=== PATIENT | male | born 1970 | race Caucasian/White ===

== ENCOUNTER 2023-01-27 07:54 | Emergency (ER) | payer MEDICARE, OTHER ==
[~2023-01-27] VITALS: Ht 172.7 cm; Wt 88.0 kg
[2023-01-27] MEDS ORDERED: LISI20TA24 PO (08:38)
[2023-01-27] MEDS ORDERED: [UNRECOGNIZED DRUG - REMARK] MISC (08:38)
[2023-01-27] MEDS ORDERED: NIFE-79 PO (08:38)
[2023-01-27] MEDS ORDERED: SEVE800T17 PO (08:38)
[2023-01-27] MEDS ORDERED: BUME1TAB6 PO (08:38)
[2023-01-27] MEDS ORDERED: ASPI-1444 PO (08:38)
[2023-01-27] MEDS ORDERED: LORazepam 1 MG TABLET PO ONE (09:15)
[2023-01-27 09:55] VITALS: BP 141/73; PULSE 98; RESP 18; TEMP 97.4
== END 2023-01-27 10:21 | disposition home or self-care (01) ==
LOC: EMS 07:55
DX: F41.9 Anxiety disorder, unspecified (principal); Z98.890 Other specified postprocedural states
CPT/HCPCS: 82962; 99283

== ENCOUNTER 2023-01-30 20:23 | Inpatient (IN) | payer MEDICARE, OTHER ==
[~2023-01-30] VITALS: Ht 172.7 cm; Wt 91.7 kg
[~2023-01-30 20:23] MED LIST: ASPI-1444 PO; BUME1TAB6 PO; LISI20TA24 PO; NIFE-79 PO; SEVE800T17 PO; [UNRECOGNIZED DRUG - REMARK] MISC
[2023-01-30] MEDS ORDERED: LORazepam 2 MG/ML VIAL IVP ONE (20:45)
[2023-01-30] MEDS ORDERED: NITROGLYCERIN 0.4 MG SUBLINGUAL TABLET #25 SL ONE (21:00)
[2023-01-30] MEDS ORDERED: MORPHINE SULFATE 4 MG/ML SYRINGE IVP ONE (21:00)
[2023-01-30] MEDS ORDERED: ONDANSETRON HCL 4 MG/2 ML VIAL IVP ONE (21:00)
[2023-01-30 21:09] LABS: BASOPHILS % (AUTO) 1.4 % (0.0-2.0); EOSINOPHILS % (AUTO) 3.4 % (1.0-6.0); HEMATOCRIT 33.1 % (41-53); HEMOGLOBIN 11.3 g/dL (13.5-17.5); LYMPHOCYTES # (AUTO) 1.4 K/uL (1.0-4.8); LYMPHOCYTES % (AUTO) 21.8 % (22.0-44.0); MEAN CORPUSCULAR HEMOGLOBIN 33.9 pg (26.0-34.0); MEAN CORPUSCULAR HGB CONC 34.1 G/dL (31.0-37.0); MEAN CORPUSCULAR VOLUME 100 fL (80-100); MONOCYTES # (AUTO) 0.7 K/uL (0.1-1.0); MONOCYTES % (AUTO) 9.9 % (2.0-9.0); NEUTROPHILS # (AUTO) 4.2 K/uL (1.8-7.7); NEUTROPHILS % (AUTO) 63.5 % (40.0-70.0); PLATELET COUNT (AUTO) 305 K/uL (150-450); RED BLOOD CELL COUNT(AUTO) 3.32 MIL/uL (4.50-5.90); RED CELL DISTRIBUTION WIDTH 14.5 % (11.5-14.5)
[2023-01-30] MEDS ORDERED: ACETAMINOPHEN 325 MG TABLET PO PRN (21:15)
[2023-01-30] MEDS ORDERED: ONDANSETRON HCL 4 MG/2 ML VIAL IVP PRN (21:15)
[2023-01-30] MEDS ORDERED: NITROGLYCERIN 0.4 MG SUBLINGUAL TABLET #25 SL PRN (21:15)
[2023-01-30 21:18] LABS: ANION GAP 14 mmol/L (8-16); CALCIUM, TOTAL 9.6 mg/dL (8.8-10.5); CARBON DIOXIDE 30 mmol/L (22-29); CHLORIDE 94 mmol/L (98-107); CREATININE 6.92 mg/dL (0.60-1.30); GLOMERULAR FILTR. RATE CALC 8 mL/min (>60); GLUCOSE,RANDOM 146 mg/dL (70-110); POTASSIUM 4.7 mmol/L (3.5-5.1); SODIUM SERUM 138 mmol/L (136-145)
[2023-01-30 21:26] LABS: ALANINE AMINOTRANSFERASE 21 U/L (12-78); ALBUMIN 3.5 g/dL (3.4-5.0); ALKALINE PHOSPHATASE 112 U/L (46-116); ASPARTATE AMINOTRANSFERASE 22 U/L (15-37); BILIRUBIN,TOTAL 0.4 mg/dL (0.1-1.0); CREATINE KINASE, TOTAL ONLY 185 U/L (39-308); LIPASE 58 U/L (16-77); TOTAL PROTEIN, SERUM 7.5 g/dL (6.4-8.2)
[2023-01-30] MEDS ORDERED: ATORVASTATIN CALCIUM 40 MG TABLET PO ONE (22:00)
[2023-01-30] MEDS ORDERED: HEPARIN SODIUM,PORCINE 5,000 UNITS/ML VIAL IVP PRN (22:00)
[2023-01-30] MEDS ORDERED: ASPIRIN 81 MG CHEWABLE TABLET PO ONE (22:00)
[2023-01-30] MEDS ORDERED: HEPARIN SODIUM,PORCINE 5,000 UNITS/ML VIAL IVP ONE (22:00)
[2023-01-30] MEDS ORDERED: IOHEXOL 350 MG/ML 100 ML VIAL ONE (22:14)
[2023-01-30] MEDS ORDERED: SODIUM CHLORIDE 0.9% 100 ML ONE (22:14)
[2023-01-30] MEDS ORDERED: NALOXONE HCL 1 MG/ML 2 ML SYRINGE IVP PRN (22:15)
[2023-01-30] MEDS ORDERED: HYDROmorphone HCL 2 MG/ML SYRINGE IVP PRN (22:15)
[2023-01-30] MEDS: HEPARIN SODIUM 25000 UNITS/D5W 250 ML IV PRN (23:18)
[2023-01-31] MEDS ORDERED: HEPARIN SODIUM,PORCINE 5,000 UNITS/ML VIAL SQ SCH
[2023-01-31] MEDS: METOPROLOL TARTRATE 25 MG TABLET PO SCH ×3 (00:13→21:29)
[2023-01-31 03:33] VITALS: BP 159/88; PULSE 69; RESP 20; TEMP 98.1
[2023-01-31 07:02] LABS: BASOPHILS % (AUTO) 1.2 % (0.0-2.0); EOSINOPHILS % (AUTO) 4.8 % (1.0-6.0); HEMATOCRIT 30.5 % (41-53); HEMOGLOBIN 10.2 g/dL (13.5-17.5); MEAN CORPUSCULAR HEMOGLOBIN 33.7 pg (26.0-34.0); MEAN CORPUSCULAR HGB CONC 33.3 G/dL (31.0-37.0); MEAN CORPUSCULAR VOLUME 101 fL (80-100); MONOCYTES # (AUTO) 0.6 K/uL (0.1-1.0); NEUTROPHILS # (AUTO) 3.4 K/uL (1.8-7.7); PLATELET COUNT (AUTO) 263 K/uL (150-450); RED BLOOD CELL COUNT(AUTO) 3.01 MIL/uL (4.50-5.90); RED CELL DISTRIBUTION WIDTH 14.6 % (11.5-14.5)
[2023-01-31 07:16] LABS: GLUCOMETER DEV NAME(LOC) 5N.1C
[2023-01-31 07:50] VITALS: BP 134/73; PULSE 72; RESP 18; TEMP 98.1
[2023-01-31] MEDS ORDERED: ASPIRIN 81 MG CHEWABLE TABLET PO SCH (08:00)
[2023-01-31] MEDS: DOCUSATE SODIUM 100 MG CAPSULE PO SCH ×2 (08:55→21:28)
[2023-01-31] MEDS: ATORVASTATIN CALCIUM 40 MG TABLET PO SCH (08:55)
[2023-01-31] MEDS: HEPARIN SODIUM,PORCINE 5,000 UNITS/ML VIAL IVP PRN ×2 (09:10→18:22)
[2023-01-31] MEDS ORDERED: AMINOPHYLLINE 25 MG/ML 10 ML VIAL IVP ONE (10:30)
[2023-01-31] MEDS ORDERED: REGADENOSON 0.4 MG/5 ML PF SYRINGE IVP ONE (10:30)
[2023-01-31] MEDS ORDERED: SESTAMIBI TC99M/UD ISOTOPE 1 EA INJ INJ ONE ×2 (10:55→13:00)
[2023-01-31 11:22] VITALS: BP 171/88; PULSE 72
[2023-01-31 11:46] VITALS: BP 154/78; PULSE 74; RESP 19; TEMP 98.2
[2023-01-31] MEDS ORDERED: LISI30TA4 PO (13:40)
[2023-01-31] MEDS ORDERED: CETI10TA58 PO (13:40)
[2023-01-31] MEDS ORDERED: FOLI1TAB85 PO (13:40)
[2023-01-31] MEDS: NIFEdipine 60 MG ER TABLET PO SCH (15:23)
[2023-01-31] MEDS: LISINOPRIL 20 MG TABLET PO SCH (15:23)
[2023-01-31 15:47] VITALS: BP 150/59; PULSE 68; RESP 18; TEMP 98.3
[2023-01-31] MEDS: SEVELAMER CARBONATE 800 MG TABLET PO SCH (18:18)
[2023-01-31] MEDS: HEPARIN SODIUM 25000 UNITS/D5W 250 ML IV PRN (18:23)
[2023-01-31 18:43] LABS: CALCIUM, TOTAL 9.2 mg/dL (8.8-10.5); CREATININE 9.49 mg/dL (0.60-1.30); POTASSIUM 5.7 mmol/L (3.5-5.1)
[2023-01-31 18:47] LABS: MAGNESIUM 2.8 mg/dL (1.80-2.40); PHOSPHORUS 6.7 mg/dL (2.5-4.9)
[2023-01-31] MEDS ORDERED: MELATONIN 3 MG TABLET PO PRN (20:15)
[2023-01-31 20:40] VITALS: BP 146/80; PULSE 74; RESP 20; TEMP 98.4
[2023-01-31] MEDS ORDERED: CETIRIZINE HCL 10 MG TABLET PO PRN (23:15)
[2023-01-31 23:16] LABS: GLUCOMETER DEV NAME(LOC) 5N.2C
[2023-02-01] VITALS (13 sets, daily range): BP systolic 141–174; BP diastolic 70–96; PULSE 65–100; RESP 18–20; TEMP 97.8–98.5
[2023-02-01] MEDS: ASPIRIN 81 MG DR TABLET PO SCH (08:31)
[2023-02-01] MEDS: SEVELAMER CARBONATE 800 MG TABLET PO SCH ×3 (08:31→18:24)
[2023-02-01] MEDS: ATORVASTATIN CALCIUM 40 MG TABLET PO SCH (08:32)
[2023-02-01] MEDS: DOCUSATE SODIUM 100 MG CAPSULE PO SCH ×2 (08:32→21:25)
[2023-02-01] MEDS: LISINOPRIL 20 MG TABLET PO SCH (09:00)
[2023-02-01] MEDS: NIFEdipine 60 MG ER TABLET PO SCH (09:00)
[2023-02-01] MEDS: METOPROLOL TARTRATE 25 MG TABLET PO SCH ×2 (09:00→21:21)
[2023-02-01] MEDS ORDERED: HEPARIN SODIUM,PORCINE 1,000 UNITS/ML VIAL IVP ONE (12:00)
[2023-02-01] MEDS: FOLIC ACID/VIT B COMPLEX AND C TABLET PO SCH (13:00)
[2023-02-01] MEDS ORDERED: CETIRIZINE HCL 10 MG TABLET PO SCH (13:45)
[2023-02-01] MEDS ORDERED: DOCUSATE SODIUM 100 MG CAPSULE PO ONE (14:00)
[2023-02-01] MEDS ORDERED: SODIUM PHOSPHATE,MONO-DIBASIC 133 ML ENEMA PR ONE (14:00)
[2023-02-01] MEDS ORDERED: SODIUM CHLORIDE 0.9% 2,000 ML ONE (14:09)
[2023-02-01] MEDS: CETIRIZINE HCL 10 MG TABLET PO PRN (14:18)
[2023-02-02 05:56] VITALS: BP 127/59; PULSE 65; RESP 18; TEMP 98.3
[2023-02-02 08:28] VITALS: BP 178/87; PULSE 69; RESP 18; TEMP 98.4
[2023-02-02 08:33] LABS: CALCIUM, TOTAL 9.3 mg/dL (8.8-10.5); CREATININE 8.1 mg/dL (0.60-1.30); PHOSPHORUS 6.6 mg/dL (2.5-4.9); POTASSIUM 5.7 mmol/L (3.5-5.1)
[2023-02-02] MEDS: NIFEdipine 60 MG ER TABLET PO SCH (08:52)
[2023-02-02] MEDS: LISINOPRIL 20 MG TABLET PO SCH (08:52)
[2023-02-02] MEDS: ASPIRIN 81 MG DR TABLET PO SCH (08:53)
[2023-02-02] MEDS: DOCUSATE SODIUM 100 MG CAPSULE PO SCH ×2 (08:53→20:43)
[2023-02-02] MEDS: METOPROLOL TARTRATE 25 MG TABLET PO SCH ×2 (08:53→20:43)
[2023-02-02] MEDS: SEVELAMER CARBONATE 800 MG TABLET PO SCH ×3 (08:54→17:31)
[2023-02-02] MEDS: FOLIC ACID/VIT B COMPLEX AND C TABLET PO SCH (08:54)
[2023-02-02] MEDS: ATORVASTATIN CALCIUM 40 MG TABLET PO SCH (08:54)
[2023-02-02 12:00] VITALS: BP 172/78; PULSE 68; RESP 19; TEMP 97.9
[2023-02-02] MEDS ORDERED: HydrALAZINE HCL 25 MG TABLET PO PRN (12:15)
[2023-02-02] MEDS ORDERED: SODIUM ZIRCONIUM CYCLOSILICATE 5 GM POWDER PACKET PO ONE (13:15)
[2023-02-02 15:18] VITALS: BP 137/69; PULSE 74; RESP 19; TEMP 97.8
[2023-02-02] MEDS: CETIRIZINE HCL 10 MG TABLET PO PRN (17:31)
[2023-02-02 20:21] VITALS: BP 125/60; PULSE 74; RESP 18; TEMP 97.6
[2023-02-03] VITALS (25 sets, daily range): BP systolic 8–230; BP diastolic 50–91; PULSE 6–89; RESP 18–24; TEMP 97–98.4
[2023-02-03] MEDS ORDERED: LIDOCAINE/PF 1% 30 ML VIAL ONE (07:08)
[2023-02-03] MEDS ORDERED: IOHEXOL 300 MG/ML 100 ML VIAL ONE (07:08)
[2023-02-03] MEDS ORDERED: SODIUM BICARBONATE 50 MEQ/50 ML VIAL ONE (07:08)
[2023-02-03] MEDS ORDERED: HEPARIN SODIUM 1000 UNITS/NS 1,000 ML ONE (07:08)
[2023-02-03 07:26] LABS: EOSINOPHILS % (AUTO) 5.2 % (1.0-6.0); HEMATOCRIT 29.6 % (41-53); HEMOGLOBIN 10.4 g/dL (13.5-17.5); LYMPHOCYTES # (AUTO) 1.8 K/uL (1.0-4.8); LYMPHOCYTES % (AUTO) 29.4 % (22.0-44.0); MEAN CORPUSCULAR HEMOGLOBIN 35.2 pg (26.0-34.0); MEAN CORPUSCULAR HGB CONC 35.1 G/dL (31.0-37.0); MEAN CORPUSCULAR VOLUME 100 fL (80-100); MONOCYTES # (AUTO) 0.6 K/uL (0.1-1.0); MONOCYTES % (AUTO) 9.3 % (2.0-9.0); NEUTROPHILS # (AUTO) 3.4 K/uL (1.8-7.7); NEUTROPHILS % (AUTO) 55.1 % (40.0-70.0); PLATELET COUNT (AUTO) 233 K/uL (150-450); RED BLOOD CELL COUNT(AUTO) 2.96 MIL/uL (4.50-5.90); RED CELL DISTRIBUTION WIDTH 14.4 % (11.5-14.5)
[2023-02-03] MEDS ORDERED: FentaNYL CITRATE PF 100 MCG/2 ML VIAL ONE (07:37)
[2023-02-03] MEDS ORDERED: NITROGLYCERIN 50 MG/D5% WATER 250 ML ONE (07:37)
[2023-02-03] MEDS ORDERED: VERAPAMIL HCL 2.5 MG/ML 2 ML VIAL ONE (07:37)
[2023-02-03] MEDS ORDERED: MIDAZOLAM HCL 2 MG/2 ML VIAL ONE (07:37)
[2023-02-03 07:49] LABS: CALCIUM, TOTAL 8.8 mg/dL (8.8-10.5); CREATININE 10.58 mg/dL (0.60-1.30); POTASSIUM 5.3 mmol/L (3.5-5.1)
[2023-02-03] MEDS ORDERED: LIDOCAINE 1% 30 ML/SOD BICARB 8.4% 4 ML SQ ONE (08:00)
[2023-02-03] MEDS: SEVELAMER CARBONATE 800 MG TABLET PO SCH ×3 (08:00→17:38)
[2023-02-03] MEDS ORDERED: HEPARIN SODIUM,PORCINE 1,000 UNITS/ML 10 ML VIAL IARTER ONE (08:00)
[2023-02-03] MEDS ORDERED: HEPARIN SODIUM 1000 UNITS/NS 1,000 ML IARTER ONE (08:00)
[2023-02-03] MEDS ORDERED: IOHEXOL 300 MG/ML 100 ML VIAL IARTER ONE ×2 (08:00→08:30)
[2023-02-03] MEDS ORDERED: MIDAZOLAM HCL 2 MG/2 ML VIAL IVP ONE (08:00)
[2023-02-03] MEDS ORDERED: FentaNYL CITRATE PF 100 MCG/2 ML VIAL IVP ONE (08:00)
[2023-02-03] MEDS ORDERED: VERAPAMIL HCL 2.5 MG/ML 2 ML VIAL IARTER ONE (08:00)
[2023-02-03] MEDS ORDERED: NITROGLYCERIN/D5W 50 MG/250 ML IV BOTTLE IARTER ONE (08:00)
[2023-02-03] MEDS ORDERED: HEPARIN SODIUM,PORCINE 1,000 UNITS/ML 10 ML VIAL IVP ONE (08:30)
[2023-02-03] MEDS ORDERED: ASPIRIN 81 MG CHEWABLE TABLET ONE (08:41)
[2023-02-03] MEDS ORDERED: TICAGRELOR 90 MG TABLET ONE (08:41)
[2023-02-03] MEDS: ASPIRIN 81 MG DR TABLET PO SCH (08:42)
[2023-02-03] MEDS ORDERED: TICAGRELOR 90 MG TABLET PO ONE (08:45)
[2023-02-03] MEDS ORDERED: ASPIRIN 81 MG DR TABLET PO ONE ×2 (08:45→09:00)
[2023-02-03] MEDS ORDERED: SODIUM ZIRCONIUM CYCLOSILICATE 5 GM POWDER PACKET PO ONE (10:15)
[2023-02-03] MEDS: NIFEdipine 60 MG ER TABLET PO SCH (11:17)
[2023-02-03] MEDS: METOPROLOL TARTRATE 25 MG TABLET PO SCH ×2 (11:18→21:47)
[2023-02-03] MEDS: DOCUSATE SODIUM 100 MG CAPSULE PO SCH ×2 (11:18→21:47)
[2023-02-03] MEDS: ATORVASTATIN CALCIUM 40 MG TABLET PO SCH (11:18)
[2023-02-03] MEDS: FOLIC ACID/VIT B COMPLEX AND C TABLET PO SCH (11:24)
[2023-02-03] MEDS ORDERED: ASPI-1444 PO (12:24)
[2023-02-03] MEDS ORDERED: SEVE800T17 PO (12:24)
[2023-02-03] MEDS ORDERED: NIFE-129 PO (12:24)
[2023-02-03] MEDS ORDERED: CETI-450 PO (12:24)
[2023-02-03] MEDS ORDERED: METO25 PO (12:24)
[2023-02-03] MEDS ORDERED: TICA90TA PO ×2 (12:24→12:25)
[2023-02-03] MEDS ORDERED: ATOR40TA71 PO (12:24)
[2023-02-03] MEDS ORDERED: FOLI0.8T2 PO (12:24)
[2023-02-03] MEDS ORDERED: HydrALAZINE HCL 20 MG/ML VIAL IVP PRN (13:15)
[2023-02-03] MEDS: CETIRIZINE HCL 10 MG TABLET PO PRN ×2 (13:42→21:57)
[2023-02-03] MEDS ORDERED: HYDROCODONE/ACETAMINOPHEN 5-325 MG TABLET PO PRN (16:15)
[2023-02-03] MEDS ORDERED: MORPHINE SULFATE 2 MG/ML SYRINGE IVP PRN (16:15)
[2023-02-03] MEDS: TICAGRELOR 90 MG TABLET PO SCH (21:47)
[2023-02-04] VITALS (10 sets, daily range): BP systolic 90–133; BP diastolic 50–82; PULSE 70–81; RESP 16–24; TEMP 97.8–98
[2023-02-04 06:57] LABS: BASOPHILS % (AUTO) 0.7 % (0.0-2.0); EOSINOPHILS % (AUTO) 3.6 % (1.0-6.0); HEMATOCRIT 29.7 % (41-53); HEMOGLOBIN 10.3 g/dL (13.5-17.5); LYMPHOCYTES # (AUTO) 1.4 K/uL (1.0-4.8); LYMPHOCYTES % (AUTO) 18.9 % (22.0-44.0); MEAN CORPUSCULAR HEMOGLOBIN 34.9 pg (26.0-34.0); MEAN CORPUSCULAR HGB CONC 34.7 G/dL (31.0-37.0); MEAN CORPUSCULAR VOLUME 101 fL (80-100); MONOCYTES # (AUTO) 0.7 K/uL (0.1-1.0); NEUTROPHILS % (AUTO) 67.8 % (40.0-70.0); PLATELET COUNT (AUTO) 225 K/uL (150-450); RED BLOOD CELL COUNT(AUTO) 2.96 MIL/uL (4.50-5.90); RED CELL DISTRIBUTION WIDTH 14.6 % (11.5-14.5)
[2023-02-04 07:00] LABS: CALCIUM, TOTAL 8.8 mg/dL (8.8-10.5); CREATININE 12.34 mg/dL (0.60-1.30)
[2023-02-04] MEDS: SEVELAMER CARBONATE 800 MG TABLET PO SCH ×3 (08:25→18:09)
[2023-02-04] MEDS: FOLIC ACID/VIT B COMPLEX AND C TABLET PO SCH (08:26)
[2023-02-04] MEDS: TICAGRELOR 90 MG TABLET PO SCH (08:26)
[2023-02-04] MEDS: ASPIRIN 81 MG DR TABLET PO SCH (08:26)
[2023-02-04] MEDS: DOCUSATE SODIUM 100 MG CAPSULE PO SCH (08:26)
[2023-02-04] MEDS: ATORVASTATIN CALCIUM 40 MG TABLET PO SCH (08:26)
[2023-02-04] MEDS: METOPROLOL TARTRATE 25 MG TABLET PO SCH (08:29)
[2023-02-04] MEDS ORDERED: METOPROLOL TARTRATE 25 MG TABLET PO SCH (09:00)
[2023-02-04] MEDS: CETIRIZINE HCL 10 MG TABLET PO PRN ×2 (12:40→18:12)
== END 2023-02-04 20:10 | disposition home or self-care (01) | DRG 246 ==
LOC: EMS 20:24 → 5S 01-31 02:06
PROVIDERS: ADMIT Internal Medicine; ATTEND Internal Medicine
PROC: 5A1D70Z Performance of Urinary Filtration, Intermittent, Less than 6 Hours Per Day (ICD-10-PCS; 2023-02-01)
PROC: 027034Z Dilation of Coronary Artery, One Artery with Drug-eluting Intraluminal Device, Percutaneous Approach (ICD-10-PCS; principal; 2023-02-03)
PROC: 4A023N7 Measurement of Cardiac Sampling and Pressure, Left Heart, Percutaneous Approach (ICD-10-PCS; 2023-02-03)
PROC: B2111ZZ Fluoroscopy of Multiple Coronary Arteries using Low Osmolar Contrast (ICD-10-PCS; 2023-02-03)
PROC: 5A1D70Z Performance of Urinary Filtration, Intermittent, Less than 6 Hours Per Day (ICD-10-PCS; 2023-02-04)
DX: I25.110 Atherosclerotic heart disease of native coronary artery with unstable angina pectoris (principal); N18.6 End stage renal disease; I12.0 Hypertensive chronic kidney disease with stage 5 chronic kidney disease or end stage renal disease; R07.9 Chest pain, unspecified; E11.22 Type 2 diabetes mellitus with diabetic chronic kidney disease; E78.5 Hyperlipidemia, unspecified; E11.21 Type 2 diabetes mellitus with diabetic nephropathy; F41.9 Anxiety disorder, unspecified; R79.89 Other specified abnormal findings of blood chemistry; E87.5 Hyperkalemia; E11.65 Type 2 diabetes mellitus with hyperglycemia; I25.2 Old myocardial infarction; Z99.2 Dependence on renal dialysis; Z79.82 Long term (current) use of aspirin; Z79.899 Other long term (current) drug therapy; Z59.00 Homelessness unspecified
CPT/HCPCS: 71045; 71275; 78452; 80048; 80053; 82550; 82962; 83690; 83735; 83880; 84100; 84484; 85025; 85730; 87081; 87340; 90935; 92920; 92928; 93005; 93306; 99291; A9500; G0378; G0480; J0360; J1170; J1644; J2060; J2250; J2270; J2405; J3010; J3490; J7030; J7050; Q9967; 36415-L1; 36415-TC; Z7610

== ENCOUNTER 2023-02-07 17:42 | Emergency (ER) | payer MEDICARE, OTHER ==
[~2023-02-07] VITALS: Ht 172.7 cm; Wt 88.6 kg
[~2023-02-07 17:42] MED LIST changes: +ATOR40TA71 PO; +CETI-450 PO; +CETI10TA58 PO; +FOLI0.8T2 PO; +FOLI1TAB85 PO; -LISI20TA24 PO; +METO25 PO; +NIFE-129 PO; -NIFE-79 PO; +TICA90TA PO; -[UNRECOGNIZED DRUG - REMARK] MISC
[2023-02-07 17:46] VITALS: BP 129/69; PULSE 95; RESP 16; TEMP 99.2
[2023-02-07] MEDS ORDERED: CLOB15CR10 TP (19:56)
[2023-02-07] MEDS ORDERED: PROP15DR68 OU (19:56)
[2023-02-07] MEDS ORDERED: PERM60CR19 TP (19:56)
== END 2023-02-07 20:27 | disposition home or self-care (01) ==
LOC: EMS 17:44
DX: L30.9 Dermatitis, unspecified (principal); E11.22 Type 2 diabetes mellitus with diabetic chronic kidney disease; I12.0 Hypertensive chronic kidney disease with stage 5 chronic kidney disease or end stage renal disease; N18.6 End stage renal disease; H04.123 Dry eye syndrome of bilateral lacrimal glands; Z99.2 Dependence on renal dialysis; Z98.62 Peripheral vascular angioplasty status; Z98.890 Other specified postprocedural states
CPT/HCPCS: 82962; 99283

== ENCOUNTER 2023-07-09 06:50 | Inpatient (IN) | payer MEDICARE, OTHER ==
[~2023-07-09] VITALS: Ht 172.7 cm; Wt 89.7 kg
[2023-07-09] VITALS (12 sets, daily range): BP systolic 154–194; BP diastolic 61–95; PULSE 82–102; RESP 20; TEMP 97.9–98.2; O2SAT 100
[~2023-07-09 06:50] MED LIST changes: +AMLO-257 PO; +ASPI81 PO; +CLOB15CR10 TP; +ISOS30TA92 PO; +PERM60CR19 TP; +PROP15DR68 OU; -SEVE800T17 PO; +SEVE800T38 PO
[2023-07-09] MEDS ORDERED: SODIUM CHLORIDE 0.9% 100 ML ONE (07:22)
[2023-07-09] MEDS ORDERED: IOHEXOL 350 MG/ML 100 ML VIAL ONE (07:22)
[2023-07-09 07:36] LABS: BASOPHILS % (AUTO) 0.9 % (0.0-2.0); EOSINOPHILS % (AUTO) 3.3 % (1.0-6.0); HEMATOCRIT 32.2 % (41-53); LYMPHOCYTES # (AUTO) 1.6 K/uL (1.0-4.8); LYMPHOCYTES % (AUTO) 18.3 % (22.0-44.0); MEAN CORPUSCULAR HEMOGLOBIN 32.6 pg (26.0-34.0); MEAN CORPUSCULAR VOLUME 96 fL (80-100); MONOCYTES # (AUTO) 0.5 K/uL (0.1-1.0); MONOCYTES % (AUTO) 5.9 % (2.0-9.0); NEUTROPHILS # (AUTO) 6.2 K/uL (1.8-7.7); NEUTROPHILS % (AUTO) 71.6 % (40.0-70.0); PLATELET COUNT (AUTO) 257 K/uL (150-450); RED BLOOD CELL COUNT(AUTO) 3.36 MIL/uL (4.50-5.90); RED CELL DISTRIBUTION WIDTH 14.7 % (11.5-14.5); WHITE BLOOD COUNT (AUTO) 8.7 K/uL (4.5-11.0)
[2023-07-09 07:38] LABS: COVID AG,FIA SOURCE NASAL SWAB
[2023-07-09 07:51] LABS: CALCIUM, TOTAL 9.6 mg/dL (8.8-10.5); CREATININE 9.62 mg/dL (0.60-1.30); POTASSIUM 4.3 mmol/L (3.5-5.1)
[2023-07-09 07:52] LABS: PROTHROMBIN TIME 10.7 SEC (9.4-11.6); TROPONIN I-HIGH SENSITIVITY 38 ng/L (<76)
[2023-07-09 07:53] LABS: ALBUMIN 4.1 g/dL (3.4-5.0); BILIRUBIN,TOTAL 0.8 mg/dL (0.1-1.0); TOTAL PROTEIN, SERUM 7.9 g/dL (6.4-8.2)
[2023-07-09] MEDS ORDERED: LABETALOL HCL 5 MG/ML 20 ML VIAL IVP ONE ×2 (08:00→08:45)
[2023-07-09 08:09] LABS: SARS-COV2 (COVID) ANTIGEN,FIA Negative (Negative)
[2023-07-09] MEDS ORDERED: 0.9% SODIUM CHLORIDE 10 ML SYRINGE IVP PRN (10:30)
[2023-07-09] MEDS ORDERED: ONDANSETRON HCL 4 MG/2 ML VIAL IVP PRN ×2 (10:30→16:30)
[2023-07-09] MEDS ORDERED: ACETAMINOPHEN 325 MG TABLET PO PRN ×2 (10:30→16:30)
[2023-07-09] MEDS ORDERED: DiphenhydrAMINE HCL 25 MG CAPSULE PO ONE (13:15)
[2023-07-09] MEDS ORDERED: HydrOXYzine HCL 25 MG TABLET PO ONE (14:30)
[2023-07-09] MEDS ORDERED: NIFEdipine 90 MG ER TABLET PO ONE (15:45)
[2023-07-09] MEDS ORDERED: DiphenhydrAMINE HCL 50 MG/ML VIAL IVP ONE (16:00)
[2023-07-09] MEDS ORDERED: LORazepam 2 MG/ML VIAL IVP ONE (16:15)
[2023-07-09] MEDS ORDERED: LORazepam 2 MG/ML VIAL IM ONE (16:15)
[2023-07-09] MEDS ORDERED: MAGNESIUM HYDROXIDE SUSPENSION 30 ML UDCUP PO PRN (16:30)
[2023-07-09] MEDS ORDERED: ZOLPIDEM TARTRATE 5 MG TABLET PO PRN (16:30)
[2023-07-09] MEDS ORDERED: IPRATROPIUM BROMIDE 0.5 MG/2.5 ML NEB SOLUTION NEB PRN (16:30)
[2023-07-09] MEDS ORDERED: ALBUTEROL SULFATE 2.5 MG/0.5 ML NEB SOLUTION NEB PRN (16:30)
[2023-07-09] MEDS ORDERED: MORPHINE SULFATE 2 MG/ML SYRINGE IVP PRN (16:30)
[2023-07-09] MEDS ORDERED: BISACODYL 10 MG RECTAL RECTAL SUPPOSITORY PR PRN (16:30)
[2023-07-09] MEDS ORDERED: HYDROCODONE/ACETAMINOPHEN 5-325 MG TABLET PO PRN (16:30)
[2023-07-09] MEDS: SEVELAMER CARBONATE 800 MG TABLET PO SCH (19:32)
[2023-07-09] MEDS: CETIRIZINE HCL 10 MG TABLET PO PRN (20:22)
[2023-07-09] MEDS: DOCUSATE SODIUM 100 MG CAPSULE PO SCH (21:00)
[2023-07-09] MEDS: TICAGRELOR 90 MG TABLET PO SCH (22:20)
[2023-07-09] MEDS: METOPROLOL TARTRATE 25 MG TABLET PO SCH (22:36)
[2023-07-09] MEDS: GABAPENTIN 100 MG CAPSULE PO SCH ×2 (23:10→23:15)
[2023-07-09] MEDS: HEPARIN SODIUM,PORCINE 5,000 UNITS/ML VIAL SQ SCH (23:40)
[2023-07-10 00:25] VITALS: BP 144/81; PULSE 98; RESP 20; TEMP 98.2
[2023-07-10] MEDS ORDERED: HALOPERIDOL LACTATE 5 MG/ML VIAL IM ONE (01:15)
[2023-07-10 06:52] VITALS: BP 126/66; PULSE 83; RESP 17; TEMP 98.5
[2023-07-10 07:06] LABS: BASOPHILS % (AUTO) 1.1 % (0.0-2.0); EOSINOPHILS % (AUTO) 3.5 % (1.0-6.0); HEMATOCRIT 29.7 % (41-53); HEMOGLOBIN 10.5 g/dL (13.5-17.5); LYMPHOCYTES # (AUTO) 1.3 K/uL (1.0-4.8); LYMPHOCYTES % (AUTO) 18.2 % (22.0-44.0); MEAN CORPUSCULAR HEMOGLOBIN 33.6 pg (26.0-34.0); MEAN CORPUSCULAR HGB CONC 35.2 G/dL (31.0-37.0); MEAN CORPUSCULAR VOLUME 95 fL (80-100); MONOCYTES # (AUTO) 0.6 K/uL (0.1-1.0); MONOCYTES % (AUTO) 8.8 % (2.0-9.0); NEUTROPHILS # (AUTO) 4.9 K/uL (1.8-7.7); NEUTROPHILS % (AUTO) 68.4 % (40.0-70.0); PLATELET COUNT (AUTO) 227 K/uL (150-450); RED BLOOD CELL COUNT(AUTO) 3.11 MIL/uL (4.50-5.90); RED CELL DISTRIBUTION WIDTH 14.5 % (11.5-14.5); WHITE BLOOD COUNT (AUTO) 7.1 K/uL (4.5-11.0)
[2023-07-10 07:46] LABS: ALBUMIN 3.8 g/dL (3.4-5.0); BILIRUBIN,TOTAL 0.6 mg/dL (0.1-1.0); CALCIUM, TOTAL 9.8 mg/dL (8.8-10.5); CREATININE 7.4 mg/dL (0.60-1.30); POTASSIUM 4.6 mmol/L (3.5-5.1); TOTAL PROTEIN, SERUM 7.4 g/dL (6.4-8.2)
[2023-07-10] MEDS: HEPARIN SODIUM,PORCINE 5,000 UNITS/ML VIAL SQ SCH (08:00)
[2023-07-10] MEDS: METOPROLOL TARTRATE 25 MG TABLET PO SCH (08:20)
[2023-07-10] MEDS: PANTOPRAZOLE SODIUM 40 MG/VIAL IVP SCH ×2 (08:20→08:25)
[2023-07-10] MEDS: TICAGRELOR 90 MG TABLET PO SCH (08:21)
[2023-07-10] MEDS: SEVELAMER CARBONATE 800 MG TABLET PO SCH ×2 (08:21→11:14)
[2023-07-10] MEDS: CETIRIZINE HCL 10 MG TABLET PO PRN (08:21)
[2023-07-10 08:26] VITALS: BP 126/61; PULSE 81; RESP 18; TEMP 97.6
[2023-07-10] MEDS: DOCUSATE SODIUM 100 MG CAPSULE PO SCH (08:27)
[2023-07-10] MEDS ORDERED: NIFEdipine 90 MG ER TABLET PO SCH (09:00)
[2023-07-10] MEDS ORDERED: ASPIRIN 81 MG CHEWABLE TABLET PO SCH (09:00)
[2023-07-10] MEDS ORDERED: [UNRECOGNIZED DRUG - OTHER] PO SCH (09:00)
[2023-07-10] MEDS ORDERED: FOLIC ACID/VIT B COMPLEX AND C TABLET PO SCH (09:00)
[2023-07-10] MEDS ORDERED: ATORVASTATIN CALCIUM 40 MG TABLET PO SCH (09:00)
[2023-07-10] MEDS ORDERED: GABA-1216 PO (11:34)
[2023-07-10] MEDS ORDERED: NIFE90TA91 PO (11:34)
== END 2023-07-10 14:05 | disposition home or self-care (01) | DRG 304 ==
LOC: EMS 06:50 → 5S 09:50
PROVIDERS: ADMIT Hospitalist; ATTEND Hospitalist
PROC: 5A1D70Z Performance of Urinary Filtration, Intermittent, Less than 6 Hours Per Day (ICD-10-PCS; principal; 2023-07-09)
DX: I16.0 Hypertensive urgency (principal); N18.6 End stage renal disease; I12.0 Hypertensive chronic kidney disease with stage 5 chronic kidney disease or end stage renal disease; E11.22 Type 2 diabetes mellitus with diabetic chronic kidney disease; E78.5 Hyperlipidemia, unspecified; I25.10 Atherosclerotic heart disease of native coronary artery without angina pectoris; Z20.822 Contact with and (suspected) exposure to COVID-19; E11.40 Type 2 diabetes mellitus with diabetic neuropathy, unspecified; Z79.82 Long term (current) use of aspirin; Z98.61 Coronary angioplasty status; Z79.899 Other long term (current) drug therapy; Z99.2 Dependence on renal dialysis; I25.2 Old myocardial infarction
CPT/HCPCS: 70496; 70498; 70551; 71045; 80053; 82948; 84484; 85025; 85610; 85730; 86850; 86900; 86901; 87081; 87340; 90935; 92610; 93005; 99291; C9113; G0378; G0480; J1200; J1630; J1644; J2060; J3490; J7050; Q9967; 36415-L1; 36415-TC; 70450; 70450-TC